=== PATIENT | male | born 1945 | race Caucasian/White ===

== ENCOUNTER 2018-08-10 10:26 | Inpatient (IN) | payer MEDICARE ==
[~2018-08-10] VITALS: Ht 170.2 cm; Wt 70.1 kg
[2018-08-10] MEDS ORDERED: AMLO5TAB88 PO (10:39)
[2018-08-10] MEDS ORDERED: LOSA50TA20 PO (10:39)
[2018-08-10] MEDS ORDERED: OMEP20CA10 PO (10:39)
[2018-08-10] MEDS ORDERED: FOLI-43 PO (10:39)
[2018-08-10] MEDS ORDERED: CLIN300C11 PO (10:39)
[2018-08-10] MEDS ORDERED: TAMS0.4C31 PO (10:39)
[2018-08-10 11:46] LABS: BASOPHILS % 0.6 % (0.0-2.0); EOSINOPHILS % 0.1 % (0.0-5.0); HEMATOCRIT. 52.8 % (42.0-52.0); LYMPHOCYTES % 13.2 % (20.0-50.0); MEAN CORPUSCULAR HEMOGLOBIN 31.1 pg (28.0-32.0); MEAN CORPUSCULAR VOLUME 91.2 fL (80.0-94.0); MEAN PLATELET VOLUME 8.1 fl (7.4-10.4); MONOCYTES % 6.9 % (2.0-8.0); NEUTROPHILS % 79.2 % (40.0-76.0); PLATELET 249 x1000/uL (130-400); RED BLOOD CELL COUNT 5.79 mill/uL (4.7-6.1); RED CELL DISTRIBUTION WIDTH 13.5 % (11.6-14.6)
[2018-08-10 12:15] LABS: CHLORIDE 103 mEq/L (98-107)
[2018-08-10 13:37] LABS: HEPATITIS B SURFACE ANTIGEN NEGATIVE
[2018-08-10 14:01] LABS: HEPATITIS B CORE AB IGM NEGATIVE
[2018-08-10 14:02] LABS: HEPATITIS A AB IGM NEGATIVE (NEGATIVE)
[2018-08-10 14:47] LABS: CLARITY URINE CLEAR (CLEAR); COLOR URINE YELLOW (YELLOW); KETONES URINE 1+ (NEGATIVE); LEUKOCYTE ESTERASE URINE NEGATIVE (NEGATIVE); NITRITE URINE NEGATIVE (NEGATIVE); OCCULT BLOOD URINE NEGATIVE (NEGATIVE); PH URINE >=9.0 (4.5-8.0); PROTEIN URINE NEGATIVE (NEGATIVE); SPECIFIC GRAVITY URINE 1.011 (1.005-1.030)
[2018-08-10 15:06] LABS: *AMPHETAMINES SCREEN URINE NEGATIVE (NEGATIVE)
[2018-08-10 15:07] LABS: *BARBITURATES SCREEN URINE NEGATIVE (NEGATIVE); *BENZODIAZEPINES SCREEN URINE NEGATIVE (NEGATIVE); *COCAINE SCREEN URINE NEGATIVE (NEGATIVE)
[2018-08-10 15:08] LABS: CANNABINOID URINE SCREEN NEGATIVE (NEGATIVE); METHADONE URINE SCREEN NEGATIVE (NEGATIVE); OPIATES URINE SCREEN NEGATIVE (NEGATIVE); PHENCYCLIDINE URINE SCREEN NEGATIVE (NEGATIVE)
[2018-08-10] MEDS ORDERED: MORPHINE SULFATE 4 MG/ML CPJ (NOT FOR IM USE) IV ONE (15:45)
[2018-08-10] MEDS ORDERED: ONDANSETRON HCL 4MG/2ML INJ IV ONE (15:45)
[2018-08-10 17:00] LABS: AMMONIA 37 uMol/L (<32)
[2018-08-10] MEDS: MAGNESIUM OXIDE 400MG TABLET PO SCH (17:45)
[2018-08-10] MEDS ORDERED: LACTULOSE 20G/30ML UDC PO ONE (19:45)
[2018-08-10] MEDS ORDERED: CHLORDIAZEPOXIDE 5 MG CAPSULE PO ONE (19:45)
[2018-08-10 20:30] VITALS: BP 179/97
[2018-08-10 22:30] VITALS: BP 179/97
[2018-08-11] VITALS (7 sets, daily range): BP systolic 128–197; BP diastolic 70–95
[2018-08-11] MEDS ORDERED: LACTULOSE 20G/30ML UDC PO PRN
[2018-08-11] MEDS ORDERED: DEXTROSE 50% WATER 50ML SYRINGE IV PRN
[2018-08-11] MEDS ORDERED: MORPHINE SULFATE 4 MG/ML CPJ (NOT FOR IM USE) IV PRN
[2018-08-11] MEDS ORDERED: ONDANSETRON HCL 4MG/2ML INJ IV PRN
[2018-08-11] MEDS ORDERED: IBUP-2029 PO (01:13)
[2018-08-11] MEDS: BLOOD SUGAR DIAGNOSTIC STRIP TEST SCH ×2 (06:38→11:45)
[2018-08-11] MEDS: INSULIN LISPRO 100 UNITS/ML SUBCUT SCH ×2 (06:39→12:15)
[2018-08-11] MEDS ORDERED: OMEPRAZOLE 20MG CAPSULE EXTENDED RELEASE PO SCH (06:45)
[2018-08-11] MEDS: MAGNESIUM OXIDE 400MG TABLET PO SCH (08:27)
[2018-08-11] MEDS: CLONIDINE 0.1MG TABLET PO PRN (08:27)
[2018-08-11] MEDS: MULTIVITAMINS,THER W-MINERALS TABLET PO SCH (08:27)
[2018-08-11] MEDS: THIAMINE HCL 100MG TABLET PO SCH (08:27)
[2018-08-11] MEDS: FOLIC ACID 1MG TABLET PO SCH (08:28)
[2018-08-11] MEDS: AMLODIPINE 5MG TABLET PO SCH ×2 (10:30→20:53)
[2018-08-11] MEDS: OMEPRAZOLE 20MG CAPSULE EXTENDED RELEASE PO SCH (16:50)
[2018-08-11 17:10] LABS: LDL CHOLESTEROL 122 mg/dL (5-100)
[2018-08-11 17:12] LABS: HDL CHOLESTEROL 50 mg/dL (40-59)
[2018-08-11] MEDS ORDERED: TAMSULOSIN HCL 0.4MG SR CAPSULE PO SCH (21:00)
[2018-08-11] MEDS ORDERED: PROMETHAZINE/DEXTROMETHORPHAN 6.25-15MG/5ML BOTTLE 120ML PO PRN (22:00)
[2018-08-12] VITALS: BP 103/48
[2018-08-12 04:00] VITALS: BP 136/72
[2018-08-12] MEDS: OMEPRAZOLE 20MG CAPSULE EXTENDED RELEASE PO SCH ×2 (06:30→16:29)
[2018-08-12 06:40] LABS: BASOPHILS % 0.7 % (0.0-2.0); EOSINOPHILS % 2.8 % (0.0-5.0); HEMATOCRIT. 46.8 % (42.0-52.0); LYMPHOCYTES % 28.4 % (20.0-50.0); MEAN CORPUSCULAR HEMOGLOBIN 31.5 pg (28.0-32.0); MEAN CORPUSCULAR VOLUME 91.8 fL (80.0-94.0); MEAN PLATELET VOLUME 8.3 fl (7.4-10.4); MONOCYTES % 11.3 % (2.0-8.0); NEUTROPHILS % 56.8 % (40.0-76.0); PLATELET 189 x1000/uL (130-400); RED BLOOD CELL COUNT 5.09 mill/uL (4.7-6.1); RED CELL DISTRIBUTION WIDTH 13.2 % (11.6-14.6)
[2018-08-12 06:54] LABS: CHLORIDE 105 mEq/L (98-107)
[2018-08-12 08:00] VITALS: BP 132/85
[2018-08-12] MEDS: MULTIVITAMINS,THER W-MINERALS TABLET PO SCH (08:56)
[2018-08-12] MEDS: THIAMINE HCL 100MG TABLET PO SCH (08:56)
[2018-08-12] MEDS: FOLIC ACID 1MG TABLET PO SCH (08:56)
[2018-08-12] MEDS: MAGNESIUM OXIDE 400MG TABLET PO SCH (08:56)
[2018-08-12] MEDS: AMLODIPINE 5MG TABLET PO SCH (08:56)
[2018-08-12 12:00] VITALS: BP 138/69
[2018-08-12 16:34] VITALS: BP 160/76
[2018-08-12] MEDS: CLONIDINE 0.1MG TABLET PO PRN (17:11)
== END 2018-08-12 17:33 | disposition home or self-care (01) | DRG 392 ==
LOC: ER 10:26 → 5WST 17:43 → EDBEDREQ 17:48 → ENRESERV 20:07
PROVIDERS: ADMIT Internal Medicine; ATTEND Internal Medicine
DX: K21.9 Gastro-esophageal reflux disease without esophagitis (principal); I20.9 Angina pectoris, unspecified; E11.43 Type 2 diabetes mellitus with diabetic autonomic (poly)neuropathy; K31.84 Gastroparesis; I10 Essential (primary) hypertension; K76.0 Fatty (change of) liver, not elsewhere classified; M54.5 Low back pain; R07.2 Precordial pain; M48.061 Spinal stenosis, lumbar region without neurogenic claudication; R33.9 Retention of urine, unspecified; K57.90 Diverticulosis of intestine, part unspecified, without perforation or abscess without bleeding; E83.42 Hypomagnesemia; K72.90 Hepatic failure, unspecified without coma; N32.89 Other specified disorders of bladder; Z90.49 Acquired absence of other specified parts of digestive tract; Z79.899 Other long term (current) drug therapy
CPT/HCPCS: 36415; 70450; 70551; 71045; 72148; 74176; 80048; 80053; 80061; 80076; 80305; 81003; 82140; 82941; 82962; 83036; 83735; 83880; 84443; 84484; 85025; 86705; 86709; 86803; 87040; 87086; 87340; 93005; 93306; 96374; 96375; 97162; 99285; G0482; J2270; J2405